=== PATIENT | female | born 1980 | race Caucasian/White ===

== ENCOUNTER 2017-03-10 11:32 | Emergency (ER) | payer MEDICAID ==
[~2017-03-10] VITALS: Ht 165.1 cm; Wt 75.5 kg
[~2017-03-10 11:32] MED LIST: FIORICET PO; METF500T9 PO
[2017-03-10 11:35] VITALS: Ht 165.1 cm; Wt 75.5 kg
[2017-03-10] MEDS ORDERED: SOD CHLORIDE 0.9% 1,000 ML IV STA (12:24)
[2017-03-10] MEDS ORDERED: KETOROLAC 30 MG INJ IV STA (12:24)
[2017-03-10 12:40] LABS: ADD SCAN DIFF NO
[2017-03-10 12:46] LABS: BASOPHILS % 0.3 % (0.0-2.0); EOSINOPHILS # 0.3 10^3/ul (0.0-0.5); EOSINOPHILS % 4.3 % (0.0-7.0); HEMATOCRIT 41.5 % (37.0-47.0); HEMOGLOBIN 13.8 g/dl (12.0-16.0); LYMPHOCYTES % 29.1 % (15.0-51.0); MEAN CORPUSCULAR HEMOGLOBIN 28.5 pg (29.0-33.0); MEAN CORPUSCULAR HGB CONC 33.3 g/dl (32.0-37.0); MEAN CORPUSCULAR VOLUME 85.6 fl (82.0-101.0); MEAN PLATELET VOLUME 10.2 fl (7.4-10.4); MONOCYTE # 0.4 10^3/ul (0.3-0.9); MONOCYTES % 5.2 % (0.0-11.0); NEUTROPHIL # 4.1 10^3/ul (1.6-7.5); NEUTROPHILS % 60.8 % (39.0-77.0); PLATELET COUNT 280 10^3/UL (140-415); RED BLOOD COUNT 4.85 10^6/ul (4.20-5.40); RED CELL DISTRIBUTION WIDTH 13.3 % (11.5-14.5); WHITE BLOOD COUNT 6.8 10^3/ul (4.8-10.8)
[2017-03-10] MEDS ORDERED: BENA40TA41 PO (12:49)
[2017-03-10 13:00] LABS: INR 0.91; PROTIME 12.3 Sec (12.2-14.2)
[2017-03-10 13:01] LABS: ALANINE AMINOTRANSFERASE 27 IU/L (13-69); ALBUMIN 5.1 g/dl (3.3-4.9); ALBUMIN/GLOBULIN RATIO 1.64; ALKALINE PHOSPHATASE 67 IU/L (42-121); ANION GAP 14 (8-16); ASPARTATE AMINO TRANSFERASE 16 IU/L (15-46); BILIRUBIN,INDIRECT 0.3 mg/dl (0-1.1); BILIRUBIN,TOTAL 0.3 mg/dl (0.2-1.3); BLOOD UREA NITROGEN 8 mg/dl (7-20); CALCIUM 9.6 mg/dl (8.4-10.2); CARBON DIOXIDE 27 mmol/L (21-31); CHLORIDE 102 mmol/L (97-110); CREATINE KINASE 34 IU/L (23-200); CREATININE 0.64 mg/dl (0.44-1.00); GLUCOSE 113 mg/dl (70-220); PARTIAL THROMBOPLASTIN TIME 29.9 Sec (25.0-35.0); POTASSIUM 3.4 mmol/L (3.5-5.1); SODIUM 140 mmol/L (135-144); TOTAL PROTEIN 8.2 g/dl (6.1-8.1)
[2017-03-10 13:13] LABS: B-TYPE NATRIURETIC PEPTIDE 150 PG/ML (0-125); CK-MB 0.24 ng/ml (0.0-2.4)
[2017-03-10 13:26] LABS: TROPONIN-I < 0.012 ng/ml (0.00-0.12)
--- NOTE | 2017-03-10 13:51 | RADRPT ---
PROCEDURE: XR Elbow. CLINICAL INDICATION: Right elbow pain TECHNIQUE: AP, lateral and oblique views of the right elbow performed. COMPARISON: None. FINDINGS: There is no acute fracture. Alignment is normal. Joint spaces are preserved. There is no significant joint effusion. Soft tissues are grossly unremarkable. IMPRESSION: 1. No radiographic evidence of acute osseous abnormality or joint effusion. RPTAT: [facility]U .Franc Smith MD, MD Date Time Electronically viewed and signed by .Franc Smith MD, on 03/10/2017 13:50 .K/
--- NOTE | 2017-03-10 14:20 | ERD ---
ER Documentation Chief Complaint Date/Time DATE: 03/10/17 TIME: 14:17 Chief Complaint bilat arm pain and neck x 3 weeks "only at night" HPI This is a very pleasant 36-year-old female with no past medical history that presents to the emergency department complaining of right elbow pain for the past 3 weeks. Contrary to the triage note the patient denies any pain in her left arm. She is right-handed dominant. She indicates she has not been undergoing excessive exercise but does undergo repetitive movements of the right upper extremity at 1 and states that the pain is prominent to the right elbow and is exacerbated with flexion and extension of the right elbow. She denies any numbness or tingling of her left or right upper extremity. She has no chest pain or pressure that radiates to the neck arm back or jaw. She also indicates that she has a dull achy sensation in the bilateral shoulders and neck that is exacerbated with movement and more prominent at night. She had no fevers or shaking or chills and denies a headache. She has had no recent travel or prolonged immobilization. The patient does not smoke tobacco and she has no family history of coronary artery disease. Patient does also indicate that she is undergoing a significant amount of stress but denies any suicidal homicidal thoughts or ideations ROS All systems reviewed and are negative except as per history of present illness. Medications Home Meds Reported Medications Benazepril Hcl* (Benazepril Hcl*) 40 Mg Tablet, 40 MG PO DAILY, #30 TAB 03/10/17 Discontinued Reported Medications Metformin Hcl (Metformin Hcl ER) 500 Mg Tab.er.24h, 500 MG PO HS 06/03/13 Discontinued Scripts Acetamin/Butalbital/Caffeine* (Fioricet*) 1 Tab Tab, 1 TAB PO Q4H Y for PAIN LEVEL 1-5, #10 TAB Prov:JOSE ALEJO NP 11/30/15 Allergies Allergies: Coded Allergies: No Known Allergy (Verified , 03/10/17) PMhx/Soc History of Surgery: Yes (3 C SECTION) Anesthesia Reaction: No Hx Neurological Disorder: No Hx Respiratory Disorders: No Hx Cardiac Disorders: No Hx Psychiatric Problems: No Hx Miscellaneous Medical Probl: Yes (HTN) Hx Alcohol Use: No Hx Substance Use: No Hx Tobacco Use: No Smoking Status: Never smoker Physical Exam Vitals Vital Signs Date Time Temp Pulse Resp B/P Pulse Ox O2 Delivery O2 Flow Rate FiO2 03/10/17 11:35 99.5 100 18 178/102 100 Physical Exam Constitutional:Well-developed. Well-nourished. HEENT:Normocephalic. Atraumatic.Pupils were equal round reactive to light. Moist mucous membranes.No tonsillar exudates. Neck: No nuchal rigidity. No lymphadenopathy. No posterior cervical spine tenderness or step-offs. No torticollis Respiratory: Not using accessory muscles of respiration.Lungs were clear to auscultation bilaterally. No rhonchi. No rales. No wheezing. Cardiovascular: Regular rate regular rhythm.No murmurs. No rubs were appreciated.S1, S2 normal. Distal pulses are palpable 2+ bilaterally. GI: Abdomen was soft. Nontender. Non Distended. No pulsatile abdominal masses or bruits. No rebound. No guarding. Bowel sounds were present and normal. Muscle skeletal: Full range of motion of both the upper and lower extremities bilaterally.Normal muscle tone.No assymetrical calf tenderness or swelling. Compartments are soft of the bilateral upper extremities. No effusion or signs of bursitis of the left of the right elbow. Mild tenderness over the right olecranon process. Patient able to AB duct both upper extremities past 90 without any difficulty. Skin: No petechia, no purpura. No lesions on the palms or the soles of the feet. No maculopapular rash. NEURO: Patient was alert, awake, orientated x3.No facial droop. Gait observed and normal with no ataxia.Speech had regular rate and rhythm. No focal neurological deficits. Result Diagram: 03/10/17 1235 03/10/17 1235 Results 24 hrs Laboratory Tests Test 03/10/17 12:35 White Blood Count 6.810^3/ul Red Blood Count 4.8510^6/ul Hemoglobin 13.8g/dl Hematocrit 41.5% Mean Corpuscular Volume 85.6fl Mean Corpuscular Hemoglobin 28.5pg Mean Corpuscular Hemoglobin Concent 33.3g/dl Red Cell Distribution Width 13.3% Platelet Count 13785^3/UL Mean Platelet Volume 10.2fl Neutrophils % 60.8% Lymphocytes % 29.1% Monocytes % 5.2% Eosinophils % 4.3% Basophils % 0.3% Nucleated Red Blood Cells % 0.0/100WBC Neutrophils # 4.110^3/ul Lymphocytes # 2.010^3/ul Monocytes # 0.410^3/ul Eosinophils # 0.310^3/ul Basophils # 0.010^3/ul Nucleated Red Blood Cells # 0.010^3/ul Prothrombin Time 12.3Sec Prothrombin Time Ratio 1.0 INR International Normalized Ratio 0.91 Activated Partial Thromboplast Time 29.9Sec Sodium Level 140mmol/L Potassium Level 3.4mmol/L Chloride Level 102mmol/L Carbon Dioxide Level 27mmol/L Anion Gap 14 Blood Urea Nitrogen 8mg/dl Creatinine 0.64mg/dl Glucose Level 113mg/dl Calcium Level 9.6mg/dl Total Bilirubin 0.3mg/dl Direct Bilirubin 0.00mg/dl Indirect Bilirubin 0.3mg/dl Aspartate Amino Transf (AST/SGOT) 16IU/L Alanine Aminotransferase (ALT/SGPT) 27IU/L Alkaline Phosphatase 67IU/L Creatine Kinase 34IU/L Creatine Kinase Index 0.7 Creatinine Kinase MB (Mass) 0.24ng/ml Troponin I < 0.012ng/ml B-Type Natriuretic Peptide 150PG/ML Total Protein 8.2g/dl Albumin 5.1g/dl Globulin 3.10g/dl Albumin/Globulin Ratio 1.64 Current Medications Medications (Trade) Dose Ordered Sig/Tabitha Route PRN Reason Start Time Stop Time Status Last Admin Dose Admin Sodium Chloride (NS) 1,000 ml @ 1,000 mls/hr Q1H STAT IV 03/10/17 12:24 03/10/17 13:23 DC 03/10/17 13:48 Ketorolac Tromethamine (Toradol) 30 mg ONCE STAT IV 03/10/17 12:24 03/10/17 12:27 DC 03/10/17 13:47 Clonidine (Catapres) 0.1 mg ONCE ONCE PO 03/10/17 14:00 03/10/17 14:01 DC Procedures/[facility] This patient presented to the emergency department with right arm pain and neck pain. The patient had no meningeal signs or signs of torticollis. The patient has denies any blunt or penetrating trauma to the neck and utilizing the Nexus criteria no radiographic imaging was obtained of the cervical spine. I did obtain radiographic imaging the right elbow she had point tenderness over the olecranon process but there is no evidence of fracture or joint effusion. There is no evidence of rhabdomyolysis. There is no electrolyte abnormalities. 12 Lead EKG tracing ordered and reviewed by myself showed: Normal sinus rhythm of 82 bpm and no arrhythmia. CO interval normal. QRS duration normal. No ST segment elevation No ST segment depression. No changes consistent with acute ischemia. Patient received a liter bolus of 0.9 normal saline and IV Toradol. She stated her pain had significantly improved. I did feel this is more likely muscle skeletal injury and that the patient would benefit from anti-inflammatories. I did instruct the patient that she if she will follow-up with her outpatient primary care physician of her symptoms do not improve or that she can immediately return to the emergency department if her symptoms worsen. The patient was discharged home in fair condition. They were instructed to return to the emergency department at any time if there was any worsening of their condition. The patient stated they would follow up with their PCP in the next 24 -48 hours to initiate a suitable medication regimen under the care of their PCP as well as to allow their PCP to monitor any drug reactions. The patient was discharged home with prescriptions after they gave informed consent to the new medication. They were also fully informed by myself on the adverse effects and adverse drug interactions in order to provide adequate safeguards to prevent possible adverse reactions to medications. Departure Diagnosis: Primary Impression: Pain of right arm Additional Impression: Muscle ache Condition: BARBARA Lovell Mar 10, 2017 14:19
[2017-03-10] MEDS ORDERED: NAPR-260 PO (14:32)
[2017-03-10 15:47] VITALS: BP 140/83; PULSE 78; RESP 18; TEMP 98.7
== END 2017-03-10 15:48 | disposition home or self-care (01) ==
LOC: E/R 11:32
DX: M79.601 Pain in right arm (principal); I10 Essential (primary) hypertension; Z79.84 Long term (current) use of oral hypoglycemic drugs
CPT/HCPCS: 73080; 80053; 82550; 82553; 83880; 84484; 85025; 85610; 85730; 96374; J1885; J7030; Z7502; Z7610; 93005